=== PATIENT | female | born 1990 | race Asian ===

== ENCOUNTER 2020-02-04 18:13 | Inpatient (IN) | payer OTHER ==
[~2020-02-04] VITALS: Ht 165.1 cm; Wt 65.0 kg
[2020-02-04] VITALS (17 sets, daily range): BP systolic 91–134; BP diastolic 59–86; PULSE 60–76; TEMP 97.6–98.7
--- NOTE | 2020-02-04 17:45 | NUR ---
PATIENT TO LDR 3. PATIENT COMPLAINS OF CONTRACTIONS. PATIENT STATES SCANT BLEEDING,NO LEAKING OF FLUID. PATIENT ON EFM. VITALS OBTAINED. SVE /0. DR ENG CALLED. IV STARTED. [facility]. AT BEDSIDE.
[2020-02-04] MEDS ORDERED: PRENATAL (18:22)
[2020-02-04 18:27] LABS: BASO % 0.3 % (0.0-2.0); EOS # 0.1 (0.0-0.7); EOS % 0.5 % (0-4.0); GRAN % 80.2 % (42.2-75.2); HEMATOCRIT 36.2 % (37.0-47.0); HEMOGLOBIN 12.5 g/dl (12.5-16.0); LYMPH # 1.3 (1.2-3.4); LYMPH % 11.7 % (20.0-51.0); MEAN CELL VOLUME 96 fl (80.0-100.0); MEAN CORPUSCULAR HEMOGLOBIN 33 pg (27.0-31.0); MEAN CORPUSCULAR HGB CONC 35 g/dl (33.0-37.0); MEAN PLATELET VOLUME 10.6 fl (7.4-10.4); MONO # 0.8 (0.1-0.6); MONO % 6.8 % (1.7-9.3); PLATELET COUNT 176 K/mm3 (130-400); RED BLOOD COUNT 3.78 M/mm3 (4.10-5.30); REDCELL DISTRIBUTION WIDTH-CV 12.3 % (11.5-14.5)
--- NOTE | 2020-02-04 21:00 | NUR ---
1829- Bedside report from APARNA Bryan. on unit. 1914- SVE . 1944- SVE . Patient states contractions are getting more intense. 1999- VORB to start Pitocin for augmentation. Pitocin infusing at 2mU per protocol. SVE . Patient states she feels like she needs to use the restroom. Explained plan of care to patient. RN updates MD. remains on L+D unit. 2024- SVE Complete/+1. Patient begins pushing with contractions with RN. 2029- at bedside. 2034- AROM. Moderate amount of clear, odorless fluid noted. Patient continues to push with contractions with . 2039- of viable baby girl. Cord clamped and cut by FOB. Cord blood obtained. Pitocin off. 2042- Spontaneous delivery of placenta. Pitocin infusing at 333 ml/hr per protocol. Fundus massaged to firm by RN. 2nd degree perineal laceration repaired by . Local anesthetic used. Pericare provided. Ice pack applied. 2044- PP Recovery.
--- NOTE | 2020-02-04 22:30 | NUR ---
Patient ambulatory into restroom but unable to void. Pericare completed. Patient ambulated to PP room 208 without difficulty.
[2020-02-05 00:50] VITALS: BP 94/65; PULSE 70; TEMP 98.5
[2020-02-05 04:00] VITALS: BP 85/51; PULSE 64; TEMP 98.2
[2020-02-05 07:20] VITALS: BP 96/58; PULSE 90; TEMP 98.6
[2020-02-05 11:50] VITALS: BP 98/69; PULSE 82; TEMP 97.2
[2020-02-05 15:45] VITALS: BP 111/73; PULSE 88; TEMP 97.7
[2020-02-05 19:25] VITALS: BP 112/69; PULSE 88; TEMP 97.4
[2020-02-06 07:45] VITALS: BP 101/70; PULSE 82; TEMP 97.4
[2020-02-06] MEDS ORDERED: IBU600 MG PO (14:38)
== END 2020-02-06 16:15 | disposition home or self-care (01) | DRG 807 ==
LOC: LDRO 18:13 → OB 18:17 → LDR 18:17 → OB 22:30
PROVIDERS: Obstetrics & Gynecology; ADMIT Obstetrics & Gynecology
PROC: 10E0XZZ Delivery of Products of Conception, External Approach (ICD-10-PCS; principal; 2020-02-04)
PROC: 0KQM0ZZ Repair Perineum Muscle, Open Approach (ICD-10-PCS; 2020-02-04)
PROC: 10907ZC Drainage of Amniotic Fluid, Therapeutic from Products of Conception, Via Natural or Artificial Opening (ICD-10-PCS; 2020-02-04)
DX: O70.1 Second degree perineal laceration during delivery (principal); Z37.0 Single live birth; Z3A.39 39 weeks gestation of pregnancy
CPT/HCPCS: J2590; J7120

== ENCOUNTER 2023-11-02 20:52 | Inpatient (IN) | payer BC ==
[2023-11-02] VITALS (9 sets, daily range): BP systolic 111–137; BP diastolic 62–85; PULSE 81–100; TEMP 97.5
[~2023-11-02] VITALS: Ht 165.1 cm; Wt 70.0 kg
[~2023-11-02 20:52] MED LIST: IBU600 MG PO; PRENATAL
--- NOTE | 2023-11-02 21:15 | NUR ---
2044: PT AMBULATED TO LR5 WITH SPOUSE AT SIDE. PT DENIES LOF/VB. PT STATES SHE HAS BEEN HOANG EVERY 5-10MIN. PT TO THE RESTROOM, VOIDED AND CHANGED INTO CLEAN GOWN. PT PLACED ON EFM. SVE AT THIS TIME PER THIS RN 7-8//-1, UNABLE TO FEEL BAG OF WATER. AT THE NURSES STATION, SEE PHYSICIAN NOTIFICATION. THE PATIENT IS DENYING INTENSE PAIN, BUT SOME DISCOMFORT. ADMISSION ORDERS WITH PITOCIN PER . IV STARTED AT THIS TIME, 18G TO LW. PLAN OF CARE DISCUSSED WITH PATIENT. PT AND SPOUSE VERBALIZE UNDERSTANDING. 2114: REPORT TO APARNA GARCIA AND SHE ASSUMES CARE OF PATIENT AT THIS TIME.
--- NOTE | 2023-11-02 21:30 | NUR ---
IV STARTED AND LR BOLUS INFUSING WITHOUT DIFFICULTY. PT REQUESTING AN EPIDURAL. ROGER SPIVEY AT NURSES STATION AND UPDATED ON PT'S REQUEST. 2139: ROGER SPIVEY AT BEDSIDE FOR EPIDURAL PLACEMENT. PROCEDURE EXPLAINED. PT ASSISTED TO EDGE OF BED. 2149: TEST DOSE ADMINISTERED BY ROGER SPIVEY. SEE ANESTHESIA RECORDS. 2154: PT ASSISTED TO WEDGE LEFT POSITION. PLAN OF CARE AND SAFETY PRECAUTIONS EXPLAINED. 2236: SVE 8/90/0. GAMBLE CATHETER INSERTED WITHOUT DIFFICULTY. PERICARE PROVIDED. 2304: SVE UNCHANGED. PITOCIN EXPLAINED AND STARTED AT 2MUS/HR PER PROVIDERS ORDERS.
[2023-11-02 21:43] LABS: BASO % 0.1 % (0.0-2.0); EOS # 0.1 K/mm3 (0.0-0.7); EOS % 0.8 % (0.0-4.0); GRAN # 7.1 K/mm3 (1.4-6.5); HEMATOCRIT 37.6 % (37.0-47.0); HEMOGLOBIN 12.8 g/dl (12.5-16.0); LYMPH # 1.1 K/mm3 (1.2-3.4); LYMPH % 12.4 % (20.0-51.0); MEAN CELL VOLUME 94 fl (80.0-100.0); MEAN CORPUSCULAR HEMOGLOBIN 32 pg (27-31); MEAN CORPUSCULAR HGB CONC 34 g/dl (33.0-37.0); MEAN PLATELET VOLUME 11.4 fl (7.4-10.4); MONO # 0.7 K/mm3 (0.1-0.6); MONO % 7.3 % (1.7-9.3); PLATELET COUNT 176 K/mm3 (130-400); RED BLOOD COUNT 3.99 M/mm3 (4.10-5.30); REDCELL DISTRIBUTION WIDTH-CV 14.8 % (11.5-14.5)
[2023-11-03] VITALS (16 sets, daily range): BP systolic 101–136; BP diastolic 60–92; PULSE 69–115; TEMP 97.4–98.6
[2023-11-03] MEDS ORDERED: NATURAL IRON65 MG PO (00:08)
--- NOTE | 2023-11-03 00:12 | NUR ---
at bedside. SVE C/+2. AROM completed by with small amount of clear fluid noted. Pt prepped and repositioned into footplates for delivery. 0017: Pt begins pushing with contractions. 0025: Spontaneous delivery of viable female by . Infant to mothers chest where dried and stimulated by nursery RN. Pitocin stopped. Care of infant assummed by Bro BRAUN. 0029: Spontaneous delivery of intact placenta by . Pitocin resummed at 333mus/hr per protocol. Second degree laceration repaired by provider. 0039: 600 EBL noted. 600mg administered rectally by at this time. Fundal message completed by provider. Pericare provided and pads changed. Ice pack applied to perineum.
--- NOTE | 2023-11-03 03:15 | NUR ---
Pt assisted to edge of the bed. Epidural removed without difficulty. Pt denies lightheadedness or dizziness. Steri-steady used to move pt to restroom. Pt able to void. Pericare explained and completed. Pt wheeled to 207 and oriented to room. Call light within reach.
--- NOTE | 2023-11-03 06:20 | NUR ---
REPORT TAKEN AND CARE ASSUMED. PATIENT CALLS OUT STATING SHE NEEDS HELP GOING TO BATHROOM. THIS RN ENTERS ROOM TO FIND PATIENT SITTING ON SIDE OF BED. SWING SAW OPERATOR RN HAD REPORTED SHE MOVED PATIENT WITH SERA STEADY AND THAT SHE WOULD PROBABLY NEED ASSIST TO BATHROOM WHEN READY. PATIENT TELLS RN HER RIGHT LEG IS HEAVY. THIS RN ASKS IF SHE IS ABLE TO LIFT HER FOOT OFF THE FLOOR. PATIENT UNABLE TO LEFT FOOT. THIS RN EDUCATES PATIENT TO REMAIN SITTING WHILE THIS RN GETS SERA STEADY TO HELP MOVE PATIENT. PATIENT PLACED ON SERA STEADY AND MOVED TO BATHROOM EASILY. ONCE ON TOILET PATIENTS STATES I TRIED TO GET OUT OF BED BEFORE I CALLED OUT AND I FELL TO THE FLOOR. PATIENT STATES SHE DIDN'T HURT ANYTHING. PATIENT PASSES BOWEL MOVEMENT AND EMPTIES BLADDER. SERA STEADY USED TO MOVE PATIENT BACK TO BED. VSS AND OBTAINED AT THIS TIME. RIGHT KNEE NOTED TO HAVE SWELLING ON INTERIOR SIDE OF KNEE. ICE PACK PROVIDED. PATIENT ALSO HAS 2 SCATCHES ON RIGHT ELBE THAT ARE OOZING. BAND AIDES APPLIED PER PATIENT REQUEST.
[2023-11-04 00:35] VITALS: BP 111/74; PULSE 72; TEMP 98.2
[2023-11-04 07:20] VITALS: BP 110/80; PULSE 81; TEMP 97.9
--- NOTE | 2023-11-04 07:50 | NUR ---
FALL ASSESSMENT COMPLETED. PATIENT FELL YESTERDAY WHEN RIGHT LEG WAS STILL NUMB AFTER EPIDURAL PLACEMENT. RIGHT LEG NO LONGER NUMB AND PATIENT HAS STEADY INDEPENDENT GAIT EVEN WITH RISK SCORED MODERATE.
[2023-11-04] MEDS ORDERED: IBU600 MG PO (09:25)
--- NOTE | 2023-11-04 09:45 | NUR ---
DISCAHRGE TEACHING COMPLETED. EDUCATED ON FOLLOW UP APPOINTMENT AND PRESCRIPTION. QUESTIONS INVITED AND ANSWERED.
== END 2023-11-04 11:00 | disposition home or self-care (01) | DRG 807 ==
LOC: LDRO 20:52 → LDR 21:15 → OB 11-03 03:43
PROVIDERS: ADMIT Obstetrics & Gynecology
PROC: 10E0XZZ Delivery of Products of Conception, External Approach (ICD-10-PCS; principal; 2023-11-03)
PROC: 0KQM0ZZ Repair Perineum Muscle, Open Approach (ICD-10-PCS; 2023-11-03)
DX: O99.02 Anemia complicating childbirth (principal); Z37.0 Single live birth; D64.9 Anemia, unspecified; O43.113 Circumvallate placenta, third trimester; O77.0 Labor and delivery complicated by meconium in amniotic fluid; O75.89 Other specified complications of labor and delivery; O70.1 Second degree perineal laceration during delivery; Z3A.39 39 weeks gestation of pregnancy; Z23 Encounter for immunization
CPT/HCPCS: J2590; J2795; J7120